=== PATIENT | male | born 1955 | race Caucasian/White ===

== ENCOUNTER → 2018-09-10 | Outpatient (CLI) | payer MEDICARE | END | disposition home or self-care (01) | LOC: LAB SHORT 10:57 → PLD 10:57 | DX: D48.5 Neoplasm of uncertain behavior of skin (principal) | CPT/HCPCS: 88305 ==

== ENCOUNTER 2021-09-04 01:47 | Day surgery (SDC) | payer MEDICARE ==
[~2021-09-04 01:47] MED LIST: AZIT200SU; AZIT250; Acetaminophen650 M1 PO; CARTIA XT240 M1 PO; CEFTRIAXONE2 G1 IV; DOCU100 PO; ELIQUIS5 M2 PO; FURO40 PO; METR500 PO; PANT20 PO; POTA10T PO; VISBIOME 112.51 EACH PO; Ventolin/Prove6.7 GM
== END 2021-09-04 10:10 | disposition home or self-care (01) ==
LOC: ATC 01:47
DX: R78.81 Bacteremia (principal)
CPT/HCPCS: J0696

== ENCOUNTER 2021-09-05 03:58 | Day surgery (SDC) | payer MEDICARE | END 2021-09-05 09:28 | disposition home or self-care (01) | LOC: ATC 03:58 | DX: R78.81 Bacteremia (principal) | CPT/HCPCS: J0696 ==

== ENCOUNTER 2021-09-06 09:22 | Day surgery (SDC) | payer MEDICARE | END 2021-09-06 09:40 | disposition home or self-care (01) | LOC: ATC 09:22 | DX: R78.81 Bacteremia (principal) | CPT/HCPCS: J0696 ==

== ENCOUNTER 2021-09-07 02:03 | Day surgery (SDC) | payer MEDICARE | END 2021-09-07 09:43 | disposition home or self-care (01) | LOC: ATC 02:03 | DX: R78.81 Bacteremia (principal) | CPT/HCPCS: 96374; J0696 ==

== ENCOUNTER 2021-09-08 03:12 | Day surgery (SDC) | payer MEDICARE | END 2021-09-08 09:38 | disposition home or self-care (01) | LOC: ATC 03:12 | DX: R78.81 Bacteremia (principal) | CPT/HCPCS: J0696 ==

== ENCOUNTER 2021-09-10 00:26 | Day surgery (SDC) | payer MEDICARE | END 2021-09-10 09:38 | disposition home or self-care (01) | LOC: ATC 00:26 | DX: R78.81 Bacteremia (principal) | CPT/HCPCS: J0696 ==

== ENCOUNTER 2021-09-11 01:49 | Day surgery (SDC) | payer MEDICARE | END 2021-09-11 09:39 | disposition home or self-care (01) | LOC: ATC 01:49 | DX: R78.81 Bacteremia (principal) | CPT/HCPCS: J0696 ==

== ENCOUNTER 2021-09-12 03:49 | Day surgery (SDC) | payer MEDICARE | END 2021-09-12 09:57 | disposition home or self-care (01) | LOC: ATC 03:49 | DX: R78.81 Bacteremia (principal) | CPT/HCPCS: J0696 ==

== ENCOUNTER 2021-09-13 00:33 | Day surgery (SDC) | payer MEDICARE | END 2021-09-13 09:45 | disposition home or self-care (01) | LOC: ATC 00:33 | DX: R78.81 Bacteremia (principal) | CPT/HCPCS: J0696 ==

== ENCOUNTER → 2023-04-02 | Outpatient (CLI) | payer MEDICARE ==
[~2023-04-02] MED LIST changes: +AMOX-CLAV 875-1 EAC1 PO; +ELIQUIS5 M3 PO; +Flagyl500 MG PO; +Prednisone20 MG PO
== END ==
LOC: LAB 11:52 → LAB SHORT 11:52 → PLD 11:52
DX: L82.1 Other seborrheic keratosis (principal)
CPT/HCPCS: 88305